=== PATIENT | female | born 2000 | race Caucasian/White ===

== ENCOUNTER 2022-06-10 23:52 | Emergency (ER) | payer OTHER ==
[~2022-06-10] VITALS: Ht 154.9 cm; Wt 68.9 kg
[2022-06-11] MEDS ORDERED: ACETAMINOPHEN 325 MG TABLET PO ONE
[2022-06-11] MEDS ORDERED: ACETAMINOPHEN 325 MG TABLET ONE (00:06)
--- NOTE | 2022-06-11 00:12 | NUR ---
URINE COLLECTED AND SENT TO LAB
--- NOTE | 2022-06-11 00:26 | NUR ---
XRAY AT BEDSIDE
[2022-06-11 00:54] LABS: COLOR,URINE YELLOW (YELLOW)
[2022-06-11 00:55] LABS: BILIRUBIN,URINE NEGATIVE (NEGATIVE); LEUKOCYTE ESTERASE ,URINE NEGATIVE (NEGATIVE); NITRITE, URINE NEGATIVE (NEGATIVE); PROTEIN,URINE NEGATIVE (NEGATIVE); UGLUCOSE NEGATIVE (NEGATIVE); UROBILINOGEN,URINE 0.2 EU/dL (0.2)
--- NOTE | 2022-06-11 01:38 | NUR ---
Patient discharged to home in stable condition. Written and verbal after care instructions given. Patient verbalizes understanding of instruction. Pt ambulatory with a steady gait
[2022-06-11 01:39] VITALS: BP 117/66
== END 2022-06-11 01:39 | disposition home or self-care (01) ==
LOC: ER 23:57
DX: B34.9 Viral infection, unspecified (principal); R50.9 Fever, unspecified
CPT/HCPCS: 71045-TC